=== PATIENT | male | born 1980 | race African-American/Black ===

== ENCOUNTER 2016-10-13 19:30 | Emergency (ER) | payer MEDICAID ==
[~2016-10-13] VITALS: Ht 177.8 cm; Wt 85.0 kg
[2016-10-13] MEDS ORDERED: ACETAMINOPHEN WITH CODEINE 300/30MG TABLET PO ONE (20:00)
[2016-10-13] MEDS ORDERED: LIDOCAINE HCL 1% 20ML VIAL (Pyxis) INJ MC ONE (20:00)
[2016-10-13] MEDS ORDERED: TETANUS, DIPHTHERIA, PERTUSSIS VAC/PF 0.5ML (>7YR OLD) IM ONE (20:00)
[2016-10-13] MEDS ORDERED: BACITRACIN ZINC OINT UDPKT TOP ONE (20:00)
[2016-10-13 22:52] VITALS: BP 114/72
== END 2016-10-13 23:13 | disposition home or self-care (01) ==
LOC: ER 19:48
DX: S61.201A Unspecified open wound of left index finger without damage to nail, initial encounter (principal); F17.200 Nicotine dependence, unspecified, uncomplicated; F12.10 Cannabis abuse, uncomplicated; W34.00XA Accidental discharge from unspecified firearms or gun, initial encounter; Y93.89 Activity, other specified; Y92.89 Other specified places as the place of occurrence of the external cause; Y99.8 Other external cause status
CPT/HCPCS: 12001; 73140; 90471; 90715; 99284; J3490; Z7610

== ENCOUNTER 2016-10-15 09:00 | Emergency (ER) | payer MEDICAID ==
[~2016-10-15] VITALS: Ht 177.8 cm; Wt 84.0 kg
[2016-10-15] MEDS ORDERED: TRAMADOL 50MG TABLET PO ONE (10:15)
[2016-10-15 10:17] VITALS: BP 100/50
== END 2016-10-15 10:23 | disposition home or self-care (01) ==
LOC: ER 09:36
DX: Z48.00 Encounter for change or removal of nonsurgical wound dressing (principal)
CPT/HCPCS: 99283; X7700; Z7610

== ENCOUNTER 2016-10-19 10:44 | Emergency (ER) | payer MEDICAID ==
[~2016-10-19] VITALS: Ht 177.8 cm; Wt 84.0 kg
[2016-10-19 10:58] VITALS: BP 119/71
== END 2016-10-19 12:37 | disposition home or self-care (01) ==
LOC: ER 11:44
DX: S61.211D Laceration without foreign body of left index finger without damage to nail, subsequent encounter (principal); F17.200 Nicotine dependence, unspecified, uncomplicated; F12.10 Cannabis abuse, uncomplicated
CPT/HCPCS: 99282